=== PATIENT | female | born 1935 | race Caucasian/White ===

== ENCOUNTER 2018-03-03 14:45 | Inpatient (IN) | payer OTHER, MEDICARE ==
[~2018-03-03] VITALS: Ht 160 cm; Wt 80.9 kg
--- NOTE | 2018-03-03 15:03 | ED NEURO DEFICIT/STROKE ---
History of Present Illness General Chief Complaint: Neuro Symptoms/ Deficit Stated Complaint: BIBA FOR ?TIA Source: patient, DAUGHTER Exam Limitations: no limitations Vital Signs & Intake/Output Vital Signs & Intake/Output Vital Signs Date Time Temp Pulse Resp B/P B/P Pulse O2 O2 Flow FiO2 Mean Ox Delivery Rate 03/03 1459 98.5 03/03 1451 90 21 137/72 92 Room Air Allergies Coded Allergies: ciprofloxacin (Intermediate, RASH 03/03/18) Reconcile Medications Aspirin (Aspirin*) 81 MG TAB.CHEW 1 TAB PO DAILY HEART HEALTH (Reported) STOP taking on 03/17/18 Atorvastatin Calcium 40 MG TABLET 40 MG PO 1700 Stroke Clopidogrel Bisulfate (Plavix) 75 MG TABLET 75 MG PO DAILY Stroke Cyanocobalamin (Vitamin B-12) (Cyanocobalamin Injection) 1,000 MCG/ML VIAL 1 ML IM Q30D VITAMIN SUPPORT (Reported) Duloxetine HCl 60 MG CAPSULE.DR 1 CAP PO 1700 UNKNOWN (Reported) Ergocalciferol (Vitamin D2) (Vitamin D2) 50,000 UNIT CAPSULE 1 CAP PO Q30D VITAMIN SUPPORT (Reported) Folic Acid 0.4 MG TABLET 1 TAB PO DAILY VITAMIN SUPPORT (Reported) Furosemide 20 MG TABLET 1 TAB PO SuMoWeFrSa WATER RETENTION (Reported) Furosemide 40 MG TABLET 1 TAB PO TuTh WATER RETENTION (Reported) Melatonin 3 MG TABLET 2 TAB PO QPM SLEEP (Reported) Oxycodone HCl 10 MG TABLET 1 TAB PO 1800 PAIN (Reported) Potassium Chloride 20 MEQ TAB.ER.PRT 1 TAB PO DAILY SUPPLEMENT (Reported) Ranitidine (Ranitidine HCl) 150 MG TABLET 1 TAB PO QPM GI (Reported) Trazodone HCl 50 MG TABLET 1 TAB PO QPM SLEEP (Reported) Triage Note: [facility] ED FROM [facility] WITH REPORT OF SUDDEN ONSET OF RIGHT ARM AND LEG WEAKNESS AND GARBLED SPEECH AT 2 PM TODAY. ON EMS ARRIVAL, SYMPTOMS RESOLVED. PT ARRIVES TO ED A/O X 4 WITH CLEAR SPEECH. PTS DAUGHTER STATES PT IS OFTEN "OFF" WHEN SHE HAS A UTI Triage Nurses Notes Reviewed? yes Onset: Abrupt Duration: minute(s):, gone now, resolved prior to arrival Timing: single episode today Severity: severe New Weakness: RUE Impaired Ability: difficult to speak HPI: Patient presents for evaluation of an episode of right arm weakness and inability to speak. The patient states that she felt well for lunch and had returned to her room. At about 2 PM the physical therapist came to treat her, at which point she could not raise her right arm and was having difficulty speaking. She states that she was "tongue-tied". Symptoms fortunately resolved prior to arrival. The patient has no specific complaint at this time. Past History Travel History Traveled to [place] past 21 day No Medical History Any Pertinent Medical History? see below for history Cardiovascular: CHF Gastrointestinal: GI BLEED Renal: UTI History of MRSA: No History of VRE: No History of CDIFF: No Pneumonia Vaccine: 08/26/08 Influenza Vaccine: 08/20/13 Surgical History Surgical History: non-contributory Psychosocial History Who do you live with Other (see notes) Services at Home Nursing What is your primary language Amharic Tobacco Use: Never used Daily Tobacco Use Amount/Type: =< 4 Cigarettes daily ETOH Use: denies use Illicit Drug Use: denies illicit drug use Family History Family History, If Any: Relation not specified for: Family history unknown Hx Contributory? No Review of Systems Review of Systems Constitutional: Reports: no symptoms. EENTM: Reports: no symptoms. Respiratory: Reports: no symptoms. Cardiovascular: Reports: no symptoms. GI: Reports: no symptoms. Genitourinary: Reports: no symptoms. Musculoskeletal: Reports: no symptoms. Skin: Reports: no symptoms. Neurological/Psychological: Reports: see HPI. Hematologic/Endocrine: Reports: no symptoms. Immunologic/Allergic: Reports: no symptoms. All Other Systems: Reviewed and Negative Physical Exam Physical Exam General Appearance: SEE BELOW Cranial Nerves: SEE BELOW Comments: Gen.: Well-nourished, well-developed, no acute respiratory distress. Head: Normocephalic, atraumatic. Eyes: Normal inspection bilaterally Ears: Normal inspection bilaterally Nose: Normal inspection Throat/mouth : Moist mucosa Neck: Supple, full range of motion, no goiter Heart: Regular rate and rhythm, no murmurs rubs or gallops Lungs: Clear to auscultation bilaterally with normal air entry Chest: Nontender Back: Normal range of motion Abdomen: Soft, nontender, nondistended, normal bowel sounds Extremities: Normal range of motion grossly, equal radial pulses, no cyanosis clubbing or edema Neurologic: Cranial nerves 2-12 intact, speech is clear Skin: warm and dry Psychiatric: Calm, cooperative, no apparent delusions or hallucinations Core Measures CVA/TIA Diagnosis: Yes Swallow Evaluation Pass Swallow eval date 03/03/18 Swallow eval time 1900 Sepsis Present: No Sepsis Focused Exam Completed? No Progress Differential Diagnosis: electrolyte imbalance, intracranial Hem., intracranial mass/tumor, stroke, tia, UTI Plan of Care: Orders Procedure Date/time Status EKG 03/[address] NECK ANGIOGRAM 03/[address] HEAD ANGIOGRAM 03/03 1631 Active Straight Cath 03/03 1555 Active URINALYSIS 03/03 1502 Complete TROPONIN LEVEL 03/03 1502 Complete CBC WITHOUT DIFFERENTIAL 03/03 1502 Complete BASIC METABOLIC PANEL 03/03 1502 Complete EKG 03/03 1502 Active Current Medications Sig/Brittany Start time Last Medication Dose Stop Time Status Admin Alteplase, 7.2257 MG BOLUS ONE 03/03 164 CAN Recombinant 03/03 1646 (Activase 100 MG Inj) Laboratory Tests 03/03/18 1645: Urine Color YEL, Urine Clarity CLDY H, Urine pH 6.0, Ur Specific Lincoln 1.020, Urine Protein 30 H, Urine Ketones NEG, Urine Nitrite POS H, Urine Bilirubin NEG, Urine Urobilinogen 0.2, Ur Leukocyte Esterase LARGE H, Ur Microscopic SEDIMENT EXAMINED, Urine RBC 3-5, Urine WBC PACKD H, Ur Epithelial Cells RARE, Urine Bacteria MANY H, Urine Hemoglobin MOD H, Urine Glucose NEG 03/03/18 1540: Anion Gap 7, Estimated GFR > 60, BUN/Creatinine Ratio 18.8, Glucose 97, Calcium 8.4, Troponin I 0.01, CBC w Diff NO MAN DIFF REQ, RBC 4.78, MCV 88.7, MCH 28.6, MCHC 32.2 L, RDW 14.8 H, MPV 8.0, Gran % 73.3, Lymphocytes % 13.5 L, Monocytes % 11.3 H, Eosinophils % 0.9, Basophils % 1.0, Absolute Granulocytes 9.8 H, Absolute Lymphocytes 1.8, Absolute Monocytes 1.5 H, Absolute Eosinophils 0.1, Absolute Basophils 0.1 Diagnostic Imaging: Discussed w/RAD: CT Scan. Radiology Impression: PATIENT: RAMIREZ KENT PRESENT AGE: 83 PATIENT ACCOUNT NO: [id number] : 33 LOCATION: [facility] ORDERING PHYSICIAN: Elio Jin MD SERVICE DATE: 03/03/18 EXAM TYPE : CAT - CT HEAD WO IV CONTRAST EXAMINATION: CT HEAD WITHOUT CONTRAST CLINICAL INFORMATION: Transient right upper extremity weakness. Aphasia. COMPARISON: CT head 01/04/2013. TECHNIQUE: Contiguous axial imaging was performed from the skull base to vertex without intravenous administration of contrast. DLP: 588.98 mGy-cm FINDINGS: There are numerous ill-defined foci of hypoattenuation within the periventricular white matter that most likely represent a chronic manifestation of small vessel ischemia. An old lacunar infarct within the left thalamus is also noted. There is no acute intracranial hemorrhage or abnormal extra-axial collection. No intracranial mass effect or midline shift. The ventricular system is proportionate to the subarachnoid spaces. No hydrocephalus. Grossly no evidence of acute territorial infarct. The calvarium and skull base are intact. Mastoid air cells and middle ear cavities are well aerated. Visualized paranasal sinuses are well aerated. 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 Grossly no evidence of acute territorial infarct or hemorrhage. DICTATED BY: Gabino Dorado MD DATE/TIME DICTATED:03/03/181548 [employer]:CHELSEA DATE/ TIME TRANSCRIBED:03/03/181548 CONFIDENTIAL, DO NOT COPY WITHOUT APPROPRIATE AUTHORIZATION. <Electronically signed in Other Vendor System> SIGNED BY: Gabino Dorado MD 03/03/18 1554 Initial ED EKG: NSR, rate (93) Comments: 03/03/2018 4:31:15 PM I was asked to see patient for a recurrence of her symptoms. Upon my arrival to the room the patient was alert but had dysarthric speech and a subtle right facial droop and deviation of the tongue to the right. 03/03/2018 4:37:52 PM patient's case discussed with Dr. Valadez who feels the patient is a candidate for TPA not only based on the initial episode but on the repeat episode as well. Repeat EKG with symptoms remains unchanged. 03/03/2018 4:57:35 PM patient is now asymptomatic. I have discussed her case with Dr. Valadez again who feels that TPA should be withheld given the lack of symptoms. If the CTA shows a thrombosis then patient might be amenable to endovascular intervention at [facility]. Otherwise the patient should be admitted for standard TIA treatment. 03/03/2018 5:55:52 PM No occlusion or sig stenoses, aneurysm present, a lot of advanced chronic changes. Departure Departure Disposition: STILL A PATIENT Condition: Stable Clinical Impression Primary Impression: TIA (transient ischemic attack) Qualifiers: Transient cerebral ischemia type: unspecified Qualified Code: G45.9 - Transient cerebral ischemic attack, unspecified Referrals: Bassem GODINEZ,Rajat Genao (PCP/Family) Departure Forms: Customer Survey General Discharge Information Prescriptions: Current Visit Scripts Clopidogrel Bisulfate (Plavix) 75 MG PO DAILY #30 TAB Atorvastatin Calcium 40 MG PO 1700 #30 TAB Admission Note Spoke With: Caroline Baxter MD Documentation of Exam: Documentation of any treatments & extenuating circumstances including Concerns Regarding Discharge (functional status, medication knowledge or non-compliance, living conditions, etc.) that warrant an admission rather than observation: pt presents with repetitive TIA episodes suggesting a critical stenosis of a cerebral artery. she is at very high risk of a severely debilitating stroke. i do not feel she can be appropriately treated as an outpt given this high risk. i feel she requires hospitalization for continuous cardiac monitoring for possible episodic atrial fibrillation along with an expedited evaluation of reversable causes of TIA, including cardioembolism and carotid disease. medications should be reviewed and medical management optimized. Neurology and cardiology consultations should be considered. i feel this pt will require a mulitiple day hospitalization.
[2018-03-03] MEDS ORDERED: FUROSEMIDE40 M1 PO (15:25)
[2018-03-03] MEDS ORDERED: FUROSEMIDE20 M1 PO (15:25)
[2018-03-03] MEDS ORDERED: CYANOCOBAL1000 MCG/2 IM (15:26)
[2018-03-03] MEDS ORDERED: FOLIC ACID0.4 M1 PO (15:27)
[2018-03-03] MEDS ORDERED: VITAMIN D250000 UNIT PO (15:27)
[2018-03-03] MEDS ORDERED: ASPIRIN81 M4 PO (15:27)
[2018-03-03] MEDS ORDERED: DULOXETINE HCL60 MG PO (15:28)
[2018-03-03] MEDS ORDERED: POTASSIUM CHLO20 ME2 PO (15:28)
[2018-03-03] MEDS ORDERED: TRAZODONE HCL50 M1 PO (15:29)
[2018-03-03] MEDS ORDERED: OXYCODONE HCL10 M2 PO (15:29)
[2018-03-03] MEDS ORDERED: RANITIDINE HCL150 MG PO (15:30)
[2018-03-03] MEDS ORDERED: MELATONIN3 M4 PO (15:30)
[2018-03-03 15:47] LABS: ABSOLUTE BASOPHIL COUNT 0.1 /CUMM (0.0-0.2); ABSOLUTE EOSINOPHIL COUNT 0.1 /CUMM (0.0-0.7); ABSOLUTE GRANULOCYTE CT 9.8 /CUMM (1.4-6.5); ABSOLUTE LYMPH COUNT 1.8 /CUMM (1.2-3.4); ABSOLUTE MONOCYTE COUNT 1.5 /CUMM (0.10-0.60); EOSINOPHIL % 0.9 % (0-5); GRANULOCYTE % 73.3 % (42.2-75.2); HEMATOCRIT 42.4 % (37-47); MEAN CORPUSCULAR HGB 28.6 PG (27.0-31.0); MEAN CORPUSCULAR HGB CONC 32.2 G/DL (33.0-37.0); MEAN CORPUSCULAR VOLUME 88.7 FL (81.0-99.0); PLATELET COUNT 279 /CUMM (130-400); RBC DISTRIBUTION WIDTH 14.8 % (11.5-14.5); RED BLOOD CELL CT 4.78 /CUMM (4.20-5.40); WHITE BLOOD CELL COUNT 13.4 /CUMM (4.8-10.8)
--- NOTE | 2018-03-03 15:54 | CT SCAN REPORT ---
EXAMINATION: CT HEAD WITHOUT CONTRAST CLINICAL INFORMATION: Transient right upper extremity weakness. Aphasia. COMPARISON: CT head 01/04/2013. TECHNIQUE: Contiguous axial imaging was performed from the skull base to vertex without intravenous administration of contrast. DLP: 588.98 mGy-cm FINDINGS: There are numerous ill-defined foci of hypoattenuation within the periventricular white matter that most likely represent a chronic manifestation of small vessel ischemia. An old lacunar infarct within the left thalamus is also noted. There is no acute intracranial hemorrhage or abnormal extra-axial collection. No intracranial mass effect or midline shift. The ventricular system is proportionate to the subarachnoid spaces. No hydrocephalus. Grossly no evidence of acute territorial infarct. The calvarium and skull base are intact. Mastoid air cells and middle ear cavities are well aerated. Visualized paranasal sinuses are well aerated. 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 Grossly no evidence of acute territorial infarct or hemorrhage.
--- NOTE | 2018-03-03 18:02 | CT SCAN REPORT ---
EXAMINATION: CT ANGIOGRAM NECK WITH CONTRAST CT ANGIOGRAM BRAIN WITH CONTRAST CLINICAL INFORMATION: Right facial droop and tongue deviation with right upper extremity weakness. COMPARISON: Head CT performed earlier the same day. TECHNIQUE: Test bolus sequences followed by intravenous administration 100 mL of Ultravist-370. Helical imaging was performed in the axial plane from the thoracic inlet to the skull vertex. Delayed postcontrast imaging of the head was also performed. The data was processed at the diagnostic radiologic technologist workstation for generation of MIP sequences. Angled MIPs and volume rendered reformatted images were also generated at an offline 3D workstation. Stenoses are assessed in accordance with NASCET criteria unless otherwise indicated. 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 There is no intracranial hemorrhage, hydrocephalus, extra-axial surface collection, midline shift, or other herniation pattern. Mulligan to white matter differentiation is diffusely maintained without evidence of an evolved acute territorial infarct. The basilar cisterns are preserved. No significant soft tissue abnormality. No acute osseous abnormality. The paranasal sinuses and the mastoid air cells are well-aerated. CERVICAL SOFT TISSUES AND LUNG APICES: No significant soft tissue findings within the neck. The imaged upper lungs are clear. Moderate cervical spondylosis. NECK CTA: Left common carotid artery arises from the brachiocephalic artery, an anatomic variant. There is atherosclerotic calcification throughout the aortic arch as well as complex lipid rich atherosclerotic plaque. 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 The vertebral arteries are codominant. No significant ostial stenosis is visualized on either side. Both vertebral arteries are widely patent throughout their extracranial cervical course. Retropharyngeal course of the common carotid arteries and proximal to mid internal carotid arteries bilaterally. The common carotid arteries, carotid bifurcations, and cervical internal carotid arteries remain patent throughout their course. The right internal carotid artery undertakes a near 90 degree turn at the C2-C3 level with the tight bend resulting in a 60% luminal stenosis of the vessel in this location. BRAIN CTA: There is a severe stenosis involving the right P2 PUZZLE ASSEMBLER segment. There is otherwise normal opacification of major intracranial arteries. No additional focal flow-limiting stenosis, no discrete proximal large artery occlusion, and no saccular intradural aneurysm. Timing of the contrast bolus allows assessment of the major dural venous sinuses, which all opacify normally. IMPRESSION: - As on the earlier head CT, there is advanced chronic microangiopathy and there are lacunar infarcts within the deep mulligan nuclei bilaterally making it difficult to exclude any superimposed acute ischemic changes in these areas. If focal neurologic deficit persists, MRI can be obtained to more definitively exclude any acute infarcts in the setting. - There are no acute arterial occlusions intracranially. There is a severe stenosis involving the right P2 PUZZLE ASSEMBLER segment. - The right internal carotid artery undertakes a near 90 degree turn at the C2-C3 level with the tight bend resulting in a 60% luminal stenosis of the vessel in this location. Left internal carotid artery is widely patent. Retropharyngeal course of the common carotid arteries and proximal to mid internal carotid arteries. 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 Findings discussed with Dr. Jin at 5:57 PM on 03/03/2018
--- NOTE | 2018-03-03 20:42 | History & Physical ---
Jeffy Etienne MD 03/03/182032: General Information and HPI MD Statement: I have seen and personally examined RAMIREZ GARZA and documented this H&P. The patient is a 83 year old F who presented with a patient stated chief complaint of [slurred speech and right-sided weakness]. Source of Information: patient, family, old records, EMS Exam Limitations: no limitations History of Present Illness: The patient is an 83-year-old female with past medical history of hypercholesterolemia, hypertension, degenerative joint disease, osteoarthritis, history of diastolic dysfunction (echo in 2012 showing left ventricular ejection fraction of greater than 55% with stage I diastolic dysfunction), and urinary incontinence, history of insomnia, history of vertigo, history of GI bleed presenting this admission with sudden onset of right arm and leg weakness and difficulty speaking. Patient daughter was present at the time of interview. At approximately 2 PM on day of admission patient states that she noticed she was slurring her speech and started having right-sided weakness. Notes that she was not able to move her right arm and leg. Per patient and her daughter this episode resolved prior to coming to the ED. States that while in the ED at approximately 4 PM patient had another episode of right-sided weakness and slurring of speech which lasted approximately 15-20 minutes. Patient denies any numbness, tingling, confusion, palpitations, chest pain, visual disturbances, dizziness or lightheadedness. Patient's daughter states that there was no reported facial droop. No seizure- like symptoms. Patient reports that she has chronic urinary incontinence. Denies dysuria/hematuria, abdominal pain, increased frequency. Patient's daughter states that Patient denies fecal incontinence. Patient states that she has never had these type of symptoms in the past. Patient was brought to the ED from [facility] where, per the daughter, she has been staying for the past 5 years due to unsafe discharge from previous hospitalizations as patient was taking too much medication and required frequent hospitalizations due to falls in the past. [facility] was contacted for more information. They report that the patient had slurred speech and right-sided weakness this afternoon at which time patient was transferred to [facility]. Blood sugar in the field was 101. Patient received aspirin, folic acid and potassium at the nursing facility the morning of admission. Past medical history: Congestive heart failure, osteoarthritis, urinary incontinence, vertigo, insomnia Past surgical history: Cholecystectomy, partial hysterectomy, tonsillectomy Social history: Patient lives at [facility], former smoker, denies alcohol or other illicit drug use, patient at baseline uses a wheelchair to move around Medications: Per [facility] patient is on the following medications: Aspirin 81 mg daily Folic acid 0.4 mg daily Potassium 20 mg once daily Duloxetine 60 mg daily Oxycodone 10 mg daily Trazodone 50 mg at night Melatonin 6 mg at night Ranitidine 150 mg daily Allergies: Patient is allergic to ciprofloxacin reports that she gets hives. PCP: Dr. Luevano Employee Representative: Dr. Jones. Per daughter patient was seen in November 2016 at which time she reports that everything was fine. Allergies/Medications Allergies: Coded Allergies: ciprofloxacin (Intermediate, RASH 03/03/18) Home Med list Aspirin (Aspirin*) 81 MG TAB.CHEW 1 TAB PO DAILY HEART HEALTH (Reported) STOP taking on 03/18/18 Atorvastatin Calcium 40 MG TABLET 40 MG PO 1700 Stroke Clopidogrel Bisulfate (Plavix) 75 MG TABLET 75 MG PO DAILY Stroke Cyanocobalamin (Vitamin B-12) (Cyanocobalamin Injection) 1,000 MCG/ML VIAL 1 ML IM Q30D VITAMIN SUPPORT (Reported) Duloxetine HCl 60 MG CAPSULE.DR 1 CAP PO 1700 UNKNOWN (Reported) Ergocalciferol (Vitamin D2) (Vitamin D2) 50,000 UNIT CAPSULE 1 CAP PO Q30D VITAMIN SUPPORT (Reported) Folic Acid 0.4 MG TABLET 1 TAB PO DAILY VITAMIN SUPPORT (Reported) Furosemide 20 MG TABLET 1 TAB PO SuMoWeFrSa WATER RETENTION (Reported) Furosemide 40 MG TABLET 1 TAB PO TuTh WATER RETENTION (Reported) Melatonin 3 MG TABLET 2 TAB PO QPM SLEEP (Reported) Oxycodone HCl 10 MG TABLET 1 TAB PO 1800 PAIN (Reported) Potassium Chloride 20 MEQ TAB.ER.PRT 1 TAB PO DAILY SUPPLEMENT (Reported) Ranitidine (Ranitidine HCl) 150 MG TABLET 1 TAB PO QPM GI (Reported) Trazodone HCl 50 MG TABLET 1 TAB PO QPM SLEEP (Reported) Past History Travel History Traveled to [place] past 21 day No Medical History Cardiovascular: CHF Gastrointestinal: GI BLEED Renal: UTI History of MRSA: No History of VRE: No History of CDIFF: No Surgical History Surgical History: non-contributory Past Family/Social History Family History Relations & Conditions if any Relation not specified for: Family history unknown Psychosocial History Services at Home: Nursing ETOH Use: denies use Illicit Drug Use: denies illicit drug use Review of Systems Review of Systems Constitutional: Reports: see HPI, weakness. EENTM: Reports: no symptoms. Cardiovascular: Reports: no symptoms. Respiratory: Reports: no symptoms. GI: Reports: no symptoms. Genitourinary: Reports: see HPI. Musculoskeletal: Reports: joint pain. Skin: Reports: no symptoms. Neurological/Psychological: Reports: see HPI. Hematologic/Endocrine: Reports: bruising. Immunologic/Allergic: Reports: no symptoms. All Other Systems: Reviewed and Negative Exam & Diagnostic Data Last 24 Hrs of Vital Signs/I&O Vital Signs Date Time Temp Pulse Resp B/P B/P Pulse O2 O2 Flow FiO2 Mean Ox Delivery Rate 03/03 2005 98.9 85 20 135/78 97 Nasal 2.0L Cannula 03/03 180 98.2 85 20 140/85 97 Room Air 03/03 1459 98.5 03/03 1451 90 21 137/72 92 Room Air Intake & Output 03/03 1600 03/03 0800 03/03 0000 Intake Total Output Total Balance Patient 177 lb Weight Weight Reported by Patient Measurement Method Physical Exam General Appearance Alert, Oriented X3, Cooperative, No Acute Distress Skin No Rashes Skin Temp/Moisture Exam: Warm/Dry Sepsis Skin Exam (color): Normal for Ethnicity HEENT Atraumatic, PERRLA, EOMI, Mucous Membr. moist/pink Cardiovascular Regular Rate, Normal S1, Normal S2, No Murmurs Lungs Clear to Auscultation, Normal Air Movement Abdomen Normal Bowel Sounds, Soft, No Tenderness, abdominal hernia - reducible Neurological Normal Speech, Normal Tone, Sensation Intact, Cranial Nerves 3-12 NL, Reflexes 2+, strength 4/5 on RUE and LUE Extremities No Clubbing, No Cyanosis, No Edema, Normal Pulses, No Tenderness/ Swelling Last 24 Hrs of Labs/Tereso: Laboratory Tests 03/03/18 1645: Urine Color YEL, Urine Clarity CLDY H, Urine pH 6.0, Ur Specific New Site 1.020, Urine Protein 30 H, Urine Ketones NEG, Urine Nitrite POS H, Urine Bilirubin NEG, Urine Urobilinogen 0.2, Ur Leukocyte Esterase LARGE H, Ur Microscopic SEDIMENT EXAMINED, Urine RBC 3-5, Urine WBC PACKD H, Ur Epithelial Cells RARE, Urine Bacteria MANY H, Urine Hemoglobin MOD H, Urine Glucose NEG 03/03/18 1540: Anion Gap 7, Estimated GFR > 60, BUN/Creatinine Ratio 18.8, Glucose 97, Calcium 8.4, Troponin I 0.01, CBC w Diff NO MAN DIFF REQ, RBC 4.78, MCV 88.7, MCH 28.6, MCHC 32.2 L, RDW 14.8 H, MPV 8.0, Gran % 73.3, Lymphocytes % 13.5 L, Monocytes % 11.3 H, Eosinophils % 0.9, Basophils % 1.0, Absolute Granulocytes 9.8 H, Absolute Lymphocytes 1.8, Absolute Monocytes 1.5 H, Absolute Eosinophils 0.1, Absolute Basophils 0.1 Diagnostic Data EKG Results Normal sinus rhythm, Rate: 93, incomplete RBBB, t wave inversions (similar to previous EKG), no new changes, QTc: [address] Head w/o IV Contrast: There are numerous chronic small vessel ischemic changes within the periventricular white matter and an old chronic lacunar infarct within the left thalamus. Grossly no evidence of acute territorial infarct or hemorrhage. Head and Neck CTA: - As on the earlier head CT, there is advanced chronic microangiopathy and there are lacunar infarcts within the deep sanders nuclei bilaterally making it difficult to exclude any superimposed acute ischemic changes in these areas. If focal neurologic deficit persists, MRI can be obtained to more definitively exclude any acute infarcts in the setting. - There are no acute arterial occlusions intracranially. There is a severe stenosis involving the right P2 CHIEF SAFETY OFFICER segment. - The right internal carotid artery undertakes a near 90 degree turn at the C2-C3 level with the tight bend resulting in a 60% luminal stenosis of the vessel in this location. Left internal carotid artery is widely patent. Retropharyngeal course of the common carotid arteries and proximal to mid internal carotid arteries. 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 Assessment/Plan Assessment: The patient is an 83-year-old female with past medical history of hypercholesterolemia, hypertension, degenerative joint disease, osteoarthritis, history of diastolic dysfunction (echo in 2012 showing left ventricular ejection fraction of greater than 55% with stage I diastolic dysfunction), and urinary incontinence, history of insomnia, history of vertigo, history of GI bleed presenting this admission with sudden onset of right arm and leg weakness and difficulty speaking. 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 Patient had 2 separate events with similar symptoms of right- sided weakness and dysphasia which resolved within a short period of time. Patient received her daily aspirin in the morning prior to admission. Patient was given Plavix in the ED. Neurology was contacted and patient was not given TPA. Patient was also reported to be confused and below her baseline per patient's daughter with urinalysis positive for nitrites, leukocytes esterase, packed WBC and with a leukocytosis of 13.4. Patient received IV ceftriaxone in the ED. Patient will be admitted to the telemetry unit for management of followin. Suspected CVA/TIA * Monitor on telemetry * Neurochecks q4h * Serial EKG and troponins * Echocardiogram * MRI in a.m. * PT/OT evaluation * Formal swallow evaluation (patient passed bedside swallow) * Lipid profile in a.m. * Continue aspirin and Plavix (confirm with neuro in regards to continuation of Plavix) * High-dose statin * Neuro consult 2. Urinary tract infection * Continue ceftriaxone * Follow-up urine culture * Trend WBC and temperature 3. Chronic conditions: GERD, insomnia, arthritis Continue home medications: * Folic acid 0.4 mg daily * Potassium 20 mg once daily * Duloxetine 60 mg daily * Oxycodone 10 mg daily * Trazodone 50 mg at night * Melatonin 6 mg at night * Ranitidine 150 mg daily Code: Full code DVT prophylaxis: Lovenox, Alps Diet: Nothing by mouth for formal swallow eval As Ranked By This Provider Problem List: 1. CVA (cerebral vascular accident) 2. UTI (urinary tract infection) Core Measures/Misc (07/27) Acute Coronary Syndrome ACS Diagnosis: No Congestive Heart Failure Congestive Heart Failure Diagnosis No Cerebrovascular Accident CVA/TIA Diagnosis: Yes NIH Stroke Scale: Total 3 VTE (View Protocol) VTE Risk Factors Age>40 No Mechanical VTE Prophylaxis d/t N/A MechProphylax Ordered No VTE Pharm Prophylaxis d/t NA PharmProphylax ordered Sepsis (View protocol) Sepsis Present: No Albalwai,Afaf 03/03/18 2153: Resident Review Statement Resident Statement: examined this patient, discussed with product marketing intern, agreed with product marketing intern, discussed with family, reviewed EMR data (avail), discussed with nursing , discussed with case mgmt, reviewed images Other Findings: Mrs. Garza is an 83 year old woman with past medical history of urinary incontinence, HLD, CHF, stage I diastolic failure, arthritis, presents with slurred speech from [facility], episode happened twice today one at the senior living and one at our ED, at ED it last for 15-20 minutes associated with weakness on the right side. CT head, CTA head, and CTA neck was obtained at emergency department which was pertinent for: advanced chronic microangiopathy and there are lacunar infarcts within the deep sanders nuclei bilaterally making it difficult to exclude any superimposed acute ischemic changes in these areas. There is a severe stenosis involving the right P2 CHIEF SAFETY OFFICER segment. The right internal carotid artery undertakes a near 90 degree turn at the C2-C3 level with the tight bend resulting in a 60% luminal stenosis of the vessel in this location. Left internal carotid artery is widely patent. ED physician discussed the findings with neurologist and they decided to admit the patient, neurologist will see the patient tomorrow. Will admitt the patient to telemetry floor, ED department spoke with Dr. Valadez ( neurologist), will place on official consult, she received 1 dose of Plavix at ED and one dose of aspirin at the senior living, will continue aspirin from tomorrow, no need for carotid ultrasound as she has neck CTA, MRI head at a.m. , will trend troponin and EKG to rule out ACS, will check lipid panel, courtesy call for Dr. Jones to let him know that the patient admitted for TIA, neuro checks , telemetry monitoring, PT, OT, official swallow evaluation at a.m., will continue her home medication Lasix as ordered, K Arturo, vitamin D, folic acid, and will hold oxycodone, melatonin, ranitidine, trazodone, and duloxitine, assess patient at a.m. if she remains stable resume her medication. Her urine was dirty and she reports funny smelling urine, she was given 1 dose of ceftriaxone at emergency department, would continue that and will send urine culture. DVT prophylaxis with SC Lovenox, she is a full code (she has a living will states that she needs to be resuscitated but not to be on machines for more than 4 weeks) Chio Sierra 03/04/18 0054: Attending MD Review Statement Attending Statement Attending MD Statement: examined this patient, discuss w/resident/PA/CATH LAB, agreed w/resident/PA/CATH LAB, discussed with family, reviewed EMR data (avail), reviewed images, amended to note Attending Assessment/Plan: CC: Right upper extremity weakness and speech abnormality PMH: CHF Patient was sent to ER from [facility] through EMS for sudden onset right upper arm and leg weakness and garbled speech that happened around 2 PM. According to the patient she had lunch and she went to her room where physical therapy came and patient and the therapist noted that she cannot move her right upper extremity, it appeared weak and it was definite new change according to patient and other senior living staff. At the same time patient states that her speech was different, words were not coming out appropriately and right leg was weak as well. EMS was called and patient was sent to ER, by that time all her symptoms resolved and physical examination was normal. Later in the course of ER at around 4 PM patient noticed that her right upper extremity was weak again but resolved eventually. Daughter states that whenever patient gets UTI she goes an acute confusional state or mental status changes. Patient denies any urinary burning, frequency, irritation, she also denies any chest pain, chest tightness, dizziness, double vision, blurry vision, passing out, tingling numbness or seizure like activity. Vitals: Afebrile, pulse 90, RR 21, blood pressure 137/72, saturating 92% on 2 L nasal cannula. On exam: A O 3, cooperative, no acute distress, neck supple, JVD normal, no lymphadenopathy, mucosa moist, no dependent edema, no obvious skin rashes or inflammation CVS: S1-S2, RRR. RS: Clear to auscultate bilaterally. Abdomen: Soft , NT, ND, bowel sounds present. Pupils unequal, right smaller than left, both reactive to light, no nystagmus, and vision intact, decreased prominence of nasolabial fold on right side, right upper extremity drift and power 4/5 as compared to left upper extremity which is 5/5, right lower extremity strength 4/ 5, left lower extremity strength 5/5. Cerebellar reflexes intact. CT head: There are numerous chronic small vessel ischemic changes within the periventricular white matter and an old chronic lacunar infarct within the left thalamus. Grossly no evidence of acute territorial infarct or hemorrhage. CTA head and neck: - As on the earlier head CT, there is advanced chronic microangiopathy and there are lacunar infarcts within the deep sanders nuclei bilaterally making it difficult to exclude any superimposed acute ischemic changes in these areas. If focal neurologic deficit persists, MRI can be obtained to more definitively exclude any acute infarcts in the setting. - There are no acute arterial occlusions intracranially. There is a severe stenosis involving the right P2 CHIEF SAFETY OFFICER segment. - The right internal carotid artery undertakes a near 90 degree turn at the C2-C3 level with the tight bend resulting in a 60% luminal stenosis of the vessel in this location. Left internal carotid artery is widely patent. Retropharyngeal course of the common carotid arteries and proximal to mid internal carotid arteries. 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 Assessment and plan 83-year-old female with past medical history significant for congestive heart failure presented in ER for right upper extremity, lower extremity weakness at 2 PM associated with garbled speech. The symptoms resolved by the time she came to ER but appeared again at 4 PM while in ER. Given the recurrence of symptoms, she was considered a TPA candidate and by the time it could be infused her symptoms resolved. So patient did not receive TPA. Instead she received 75 mg Plavix, she already had 81 mg aspirin in the morning. On my examination she has NIHSS of 3, examination are described above. She may have had a small lacunar stroke that is not apparent on the CT scan. She already underwent a CTA head and neck which showed stenotic lesions on the right side circulation, which is not clinically correlated with patient's symptoms. We will get neurology opinion of further management (MRI and aspirin+ Plavix for 21 days) . Patient passed bedside swallow evaluation. Given her mental status changes we will treat her UTI as simple cystitis. + suspected CVA + Cystitis + Hx HF - Admit to telemetry - Continuous telemetry monitoring - Serial troponin and EKG - MRI brain with recommended by neurology - 2-D echocardiogram in a.m. - DVT prophylaxis - Obtain lipid profile - Continue aspirin and atorvastatin 40 mg - Neurology consult - Serial neuro checks - Adequate pain control - Hold Lasix for now - Swallow evaluation in a.m., OT PT evaluation - IV ceftriaxone for UTI
[2018-03-03 22:31] VITALS: BP 120/82
--- NOTE | 2018-03-04 00:55 | Admission Certification ---
Admission Certification Certification Statement - As attending physician, I certify that at the time of - admission, based on clinical presentation, severity of - symptoms, need for further diagnostic testing and - therapeutic interventions, and risk of adverse outcomes - without in-hospital treatment, in my clinical assessment, - this patient requires an acute hospital stay for a minimum - of two nights or longer. I have also considered psychsocial - factors such as support system, advanced age, financial - issues, cognitive issues, and failed out-patient treatments, - past re-admission history, safety of patient, and lack of - compliance as applicable. Specific rationale supporting this admission is: CVA
[2018-03-04 06:47] VITALS: BP 122/80
--- NOTE | 2018-03-04 07:50 | PN- Housestaff ---
Subjective Follow-up For: CVA Tele-Events Since Last Visit: Sinus rhyhtm HR 80s-90s Subjective: Patient was seen and examined at bedside. She was resting comfortably. She had no acute events overnight. She states that she feels significantly improved from yesterday, she is now able to speak normally. However she reports continued mild right upper extremity weakness, improved from yesterday. She has no other complaints and denies any headaches, dizziness, lightheadedness, chest pain, shortness of breath, palpitations. Review of Systems Constitutional: Reports: weakness. Denies: chills, fever, malaise. EENTM: Reports: no symptoms. Cardiovascular: Reports: no symptoms. Respiratory: Reports: no symptoms. Gastrointestinal: Reports: no symptoms. Genitourinary: Reports: no symptoms. Musculoskeletal: Reports: no symptoms. Skin: Reports: no symptoms. Neurological/Psychological: Reports: see HPI. Objective Last 24 Hrs of Vital Signs/I&O Vital Signs Date Time Temp Pulse Resp B/P B/P Pulse O2 O2 Flow FiO2 Mean Ox Delivery Rate 03/04 0647 98.6 86 24 122/80 96 Nasal 2.0L Cannula 03/04 0000 96 Nasal 2.0L Cannula 03/03 2231 98.2 87 24 120/82 96 03/03 2218 Nasal 2.0L Cannula 03/03 2005 98.9 85 20 135/78 97 Nasal 2.0L Cannula 03/03 180 98.2 85 20 140/85 97 Room Air 03/03 1459 98.5 03/03 1451 90 21 137/72 92 Room Air Intake & Output 03/04 0800 03/04 0000 03/03 1600 Intake Total 60 Output Total Balance 60 Intake, IV 10 Intake, Oral 50 Patient 176 lb 177 lb Weight Weight Bed scale Reported by Patient Measurement Method Physical Exam General Appearance: Alert, Cooperative, No Acute Distress, oriented to person and place but not time Skin Temp/Moisture Exam: Warm/Dry Sepsis Skin Exam (color): Normal for Ethnicity Cardiovascular: Regular Rate, Normal S1, Normal S2 Lungs: Clear to Auscultation, Normal Air Movement Abdomen: Normal Bowel Sounds, Soft, No Tenderness Neurological: Normal Speech, Normal Tone, 4+/5 strength of the RUE Extremities: No Clubbing, No Cyanosis, No Edema Current Medications: Current Medications Sig/Brittany Start time Last Medication Dose Route Stop Time Status Admin Acetaminophen 650 MG Q6P PRN 03/03 2100 AC PO Alteplase, 7.2257 MG BOLUS ONE 03/03 164 CAN Recombinant IV 03/03 164 Aspirin 81 MG DAILY 03/04 09 AC PO Atorvastatin Calcium 40 MG 1700 03/04 1700 AC PO Ceftriaxone Sodium 1,000 MG DAILY 03/04 09 AC IV Ceftriaxone Sodium 0 .STK-MED ONE 03/03 1907 DC .ROUTE Ceftriaxone Sodium 1,000 MG ONCE ONE 03/03 1900 DC 03/03 IV 03/03 190 190 Clopidogrel Bisulfate 75 MG ONCE ONE 03/03 1830 DC 03/03 PO 03/03 1831 190 Enoxaparin Sodium 40 MG DAILY 03/04 900 AC SC Folic Acid 1 MG DAILY 03/04 900 AC PO Furosemide 20 MG SuMoWeFrSa 03/04 900 CAN PO Furosemide 0 .STK-MED ONE 03/03 2212 DC PO Furosemide 40 MG TuTh 03/03 2145 DC 03/03 PO 2208 Melatonin 3 MG AT BEDTIME 03/04 0230 AC 03/04 PO 0230 Last 24 Hrs of Lab/Tereso Results Last 24 Hrs of Labs/Mics: Laboratory Tests 03/04/18 0645: Anion Gap 12, Estimated GFR > 60, BUN/Creatinine Ratio 20.0, Troponin I 0.02, Triglycerides 97, Cholesterol 181, LDL Cholesterol, Calc 117, HDL Cholesterol 45 , Cholesterol/HDL Ratio 4, CBC w Diff NO MAN DIFF REQ, RBC 4.43, MCV 88.7, MCH 29.3, MCHC 33.0, RDW 14.0, MPV 8.7, Gran % 74.3, Lymphocytes % 14.4 L, Monocytes % 9.7 H, Eosinophils % 1.3, Basophils % 0.3, Absolute Granulocytes 8.9 H, Absolute Lymphocytes 1.7, Absolute Monocytes 1.2 H, Absolute Eosinophils 0.2, Absolute Basophils 0 03/03/182154: Troponin I 0.02 03/03/181644: Urine Color YEL, Urine Clarity CLDY H, Urine pH 6.0, Ur Specific [place] 1.020, Urine Protein 30 H, Urine Ketones NEG, Urine Nitrite POS H, Urine Bilirubin NEG, Urine Urobilinogen 0.2, Ur Leukocyte Esterase LARGE H, Ur Microscopic SEDIMENT EXAMINED, Urine RBC 3-5, Urine WBC PACKD H, Ur Epithelial Cells RARE, Urine Bacteria MANY H, Urine Hemoglobin MOD H, Urine Glucose NEG 03/03/18 1540: Anion Gap 7, Estimated GFR > 60, BUN/Creatinine Ratio 18.8, Glucose 97, Calcium 8.4, Troponin I 0.01, CBC w Diff NO MAN DIFF REQ, RBC 4.78, MCV 88.7, MCH 28.6, MCHC 32.2 L, RDW 14.8 H, MPV 8.0, Gran % 73.3, Lymphocytes % 13.5 L, Monocytes % 11.3 H, Eosinophils % 0.9, Basophils % 1.0, Absolute Granulocytes 9.8 H, Absolute Lymphocytes 1.8, Absolute Monocytes 1.5 H, Absolute Eosinophils 0.1, Absolute Basophils 0.1 Microbiology 03/03 2355 URINE ROUT: Urine Culture - RECD Orders Radiology Findings: Head MRI FINDINGS: There is a small acute infarct extending from the left periventricular white matter into the posterior aspect of the left putamen. Accounting for areas of facilitated diffusion on the diffusion series, no additional acute infarcts are identified. There are T2 signal changes throughout the supratentorial white matter and brainstem suggesting moderate to severe chronic microangiopathy. Chronic lacunar infarcts within the periventricular white matter bilaterally, the deep sanders nuclei bilaterally, and cerebellar hemispheres. There is no hydrocephalus, extra-axial surface collection, or herniation. The major flow voids at the skull base are preserved. On the gradient series, there are chronic hypertensive petechial microhemorrhages within the cerebellar hemispheres, the brainstem, the deep sanders nuclei bilaterally, and to a lesser extent within the cerebral hemispheres. The midline structures are normal. The cerebellar tonsils are normally positioned. The craniocervical junction is normal. Osseous marrow signal intensity is homogenous. The visualized soft tissues are unremarkable. There are left greater than right mastoid effusions. IMPRESSION: - There is a small acute infarct extending from the left periventricular white matter into the posterior aspect of the left putamen. There is no evidence of hemorrhagic transformation and there is no significant mass effect. 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 Assessment/Plan Assessment: Patient is an 83-year-old female with a PMH significant for HTN, HLD, DJD, OA, diastolic dysfunction stage I with normal EF, urinary incontinence who presented from her [place] [facility] she lives with right upper and lower extremity weakness and dysarthria. 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 These findings did not explain his presenting symptoms were felt to be incidental. MRI head shows a small acute infarcts in the left periventricular white matter. -As patient was already on aspirin, Plavix was started for dual antiplatelet therapy -Continue statin -Patient was seen by speech therapy for bedside swallow evaluation and was cleared for a regular diet with thin liquids -Lipid panel is within normal limits -Follow-up echo #Hypokalemia Repleted orally -Follow-up BEP tomorrow #Mild leukocytosis Possibly reactive, UA results are consistent with previous UAs and patient is asymptomatic for any urinary complaints. -Discontinue ceftriaxone Diet: Heart healthy DVT prophylaxis: Lovenox CODE STATUS: Full code Problem List: 1. CVA (cerebral vascular accident) 2. Hypokalemia Pain Ratin Pain Location: none Pain Goal: Remain pain free Pain Plan: pain pathway Tomorrow's Labs & Rationales: bep, cbc
[2018-03-04 08:54] LABS: ABSOLUTE BASOPHIL COUNT 0 /CUMM (0.0-0.2); ABSOLUTE EOSINOPHIL COUNT 0.2 /CUMM (0.0-0.7); ABSOLUTE GRANULOCYTE CT 8.9 /CUMM (1.4-6.5); ABSOLUTE LYMPH COUNT 1.7 /CUMM (1.2-3.4); ABSOLUTE MONOCYTE COUNT 1.2 /CUMM (0.10-0.60); BASOPHIL % 0.3 % (0.0-2.0); EOSINOPHIL % 1.3 % (0-5); GRANULOCYTE % 74.3 % (42.2-75.2); HEMATOCRIT 39.3 % (37-47); MEAN CORPUSCULAR HGB 29.3 PG (27.0-31.0); MEAN CORPUSCULAR VOLUME 88.7 FL (81.0-99.0); MEAN PLATELET VOLUME 8.7 FL (7.4-10.4); PLATELET COUNT 271 /CUMM (130-400); RED BLOOD CELL CT 4.43 /CUMM (4.20-5.40)
--- NOTE | 2018-03-04 10:23 | MRI REPORT ---
MR BRAIN WITHOUT CONTRAST CLINICAL INFORMATION: Slurred speech COMPARISON: CTA head and neck and head CT 03/03/2018. TECHNIQUE: MRI of the brain without contrast was obtained using routine sequences. FINDINGS: There is a small acute infarct extending from the left periventricular white matter into the posterior aspect of the left putamen. Accounting for areas of facilitated diffusion on the diffusion series, no additional acute infarcts are identified. There are T2 signal changes throughout the supratentorial white matter and brainstem suggesting moderate to severe chronic microangiopathy. Chronic lacunar infarcts within the periventricular white matter bilaterally, the deep sanders nuclei bilaterally, and cerebellar hemispheres. There is no hydrocephalus, extra-axial surface collection, or herniation. The major flow voids at the skull base are preserved. On the gradient series, there are chronic hypertensive petechial microhemorrhages within the cerebellar hemispheres, the brainstem, the deep sanders nuclei bilaterally, and to a lesser extent within the cerebral hemispheres. The midline structures are normal. The cerebellar tonsils are normally positioned. The craniocervical junction is normal. Osseous marrow signal intensity is homogenous. The visualized soft tissues are unremarkable. There are left greater than right mastoid effusions. IMPRESSION: - There is a small acute infarct extending from the left periventricular white matter into the posterior aspect of the left putamen. There is no evidence of hemorrhagic transformation and there is no significant mass effect. 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 The covering provider has been paged with these findings at 10:10 AM on 03/04/2018.
--- NOTE | 2018-03-04 11:05 | PN- Att Addend ---
Attending Addendum Attending Brief Note Patient seen and examined. Plan of care discussed with the medical team and the patient. Available lab work and radiology test reports were reviewed. Patient currently awake alert oriented. Right hand weakness has improved. She denies any recent fever chills nausea vomiting chest pain difficulty breathing. Exam: General: Patient awake alert oriented without any distress CVS: S1 plus S2 without any murmur or gallops Chest: Few scattered crepitation without any wheeze. There is no respiratory distress. Abdomen: Soft non-tender, bowel sound present, no guarding or rebound MAIL EXAMINER: Awake alert oriented without any focal neuro deficit and follows commands appropriately Extremities: No edema; no clubbing or cyanosis noted Assessment * Acute stroke * History of hypertension * History of DJD * History of diastolic dysfunction based on echo in 2012 history of GI bleed * Anatomical narrowing right internal carotid artery Plan * Continue Lipitor and Plavix * Discontinue ceftriaxone and follow off antibiotics; patient urinalysis has not changed from before * PT evaluation; assess for need to go to short-term rehabilitation * Echocardiogram * Continue DVT to prophylaxis * Neuro consult * If echo neuro consult can be completed patient can be discharged either today or tomorrow * Replace potassium by mouth * No need to check a CBC tomorrow Current Medications Sig/Brittany Start time Last Medication Dose Route Stop Time Status Admin Acetaminophen 650 MG Q6P PRN 03/03 2100 AC PO Alteplase, 7.2257 MG BOLUS ONE 03/03 1645 CAN Recombinant IV 03/03 1646 Aspirin 81 MG DAILY 03/04 09 AC PO Atorvastatin Calcium 40 MG 1700 03/04 1700 AC PO Ceftriaxone Sodium 1,000 MG DAILY 03/04 09 AC 03/04 IV 0859 Ceftriaxone Sodium 0 .STK-MED ONE 03/03 1907 DC .ROUTE Ceftriaxone Sodium 1,000 MG ONCE ONE 03/03 1900 DC 03/03 IV 03/03 1901 1909 Clopidogrel Bisulfate 75 MG DAILY 03/04 1036 AC PO Clopidogrel Bisulfate 75 MG ONCE ONE 03/03 1830 DC 03/03 PO 03/03 1831 1900 Enoxaparin Sodium 40 MG DAILY 03/04 0900 AC 03/04 SC 0900 Folic Acid 1 MG DAILY 03/04 0900 AC PO Furosemide 20 MG SuMoWeFrSa 03/04 0900 CAN PO Furosemide 0 .STK-MED ONE 03/03 2212 DC [facility]03 2145 DC 03/03 PO 2208 Melatonin 3 MG AT BEDTIME 03/04 0230 AC 03/04 PO 0230 Laboratory Tests 03/04/18 0645: Anion Gap 12, Estimated GFR > 60, BUN/Creatinine Ratio 20.0, Troponin I 0.02, Triglycerides 97, Cholesterol 181, LDL Cholesterol, Calc 117, HDL Cholesterol 45 , Cholesterol/HDL Ratio 4, CBC w Diff NO MAN DIFF REQ, RBC 4.43, MCV 88.7, MCH 29.3, MCHC 33.0, RDW 14.0, MPV 8.7, Gran % 74.3, Lymphocytes % 14.4 L, Monocytes % 9.7 H, Eosinophils % 1.3, Basophils % 0.3, Absolute Granulocytes 8.9 H, Absolute Lymphocytes 1.7, Absolute Monocytes 1.2 H, Absolute Eosinophils 0.2, Absolute Basophils 0 03/03/18 2155: Troponin I 0.02 03/03/18 1645: Urine Color YEL, Urine Clarity CLDY H, Urine pH 6.0, Ur Specific [place] 1.020, Urine Protein 30 H, Urine Ketones NEG, Urine Nitrite POS H, Urine Bilirubin NEG, Urine Urobilinogen 0.2, Ur Leukocyte Esterase LARGE H, Ur Microscopic SEDIMENT EXAMINED, Urine RBC 3-5, Urine WBC PACKD H, Ur Epithelial Cells RARE, Urine Bacteria MANY H, Urine Hemoglobin MOD H, Urine Glucose NEG 03/03/18 1540: Anion Gap 7, Estimated GFR > 60, BUN/Creatinine Ratio 18.8, Glucose 97, Calcium 8.4, Troponin I 0.01, CBC w Diff NO MAN DIFF REQ, RBC 4.78, MCV 88.7, MCH 28.6, MCHC 32.2 L, RDW 14.8 H, MPV 8.0, Gran % 73.3, Lymphocytes % 13.5 L, Monocytes % 11.3 H, Eosinophils % 0.9, Basophils % 1.0, Absolute Granulocytes 9.8 H, Absolute Lymphocytes 1.8, Absolute Monocytes 1.5 H, Absolute Eosinophils 0.1, Absolute Basophils 0.1 Microbiology 03/03 0515 URINE ROUT: Urine Culture - RECD Vital Signs Date Time Temp Pulse Resp B/P B/P Pulse O2 O2 Flow FiO2 Mean Ox Delivery Rate 03/04 0647 98.6 86 24 122/80 96 Nasal 2.0L Cannula 03/04 0000 96 Nasal 2.0L Cannula 03/03 2231 98.2 87 24 120/82 96 03/03 2218 Nasal 2.0L Cannula 03/03 2005 98.9 85 20 135/78 97 Nasal 2.0L Cannula 03/03 1805 98.2 85 20 140/85 97 Room Air 03/03 1459 98.5 03/03 1451 90 21 137/72 92 Room Air Intake & Output 03/04 1600 03/04 0800 03/04 0000 Intake Total 60 Output Total Balance 60 Intake, IV 10 Intake, Oral 50 Patient 176 lb Weight Weight Bed scale Measurement Method MRI - There is a small acute infarct extending from the left periventricular white matter into the posterior aspect of the left putamen. There is no evidence of hemorrhagic transformation and there is no significant mass effect. 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
--- NOTE | 2018-03-04 12:31 | Cons- Neurology ---
General Information and HPI Consulting Request Date of Consult: 03/04/18 Requested By: Candelaria Lamar MD History of Present Illness: 83-year-old hypertensive female brought to ER last evening after an episode of slurred speech and right upper extremity weakness which resolved prior to arrival at the emergency department. Initial CT scan of the head was unrevealing. While in the ER, she again had another, similar episode of dysarthria, facial asymmetry and right upper extremity weakness which also resolved spontaneously. TPA had been considered but was ultimately held as symptoms normalized. She had no prior history of stroke or TIA. She has been residing at a halfway due to impaired locomotion and prior falls. Allergies/Medications Allergies: Coded Allergies: ciprofloxacin (Intermediate, RASH 03/03/18) Home Med List: Aspirin (Aspirin*) 81 MG TAB.CHEW 1 TAB PO DAILY HEART HEALTH (Reported) Cyanocobalamin (Vitamin B-12) (Cyanocobalamin Injection) 1,000 MCG/ML VIAL 1 ML IM Q30D VITAMIN SUPPORT (Reported) Duloxetine HCl 60 MG CAPSULE.DR 1 CAP PO 1700 UNKNOWN (Reported) Ergocalciferol (Vitamin D2) (Vitamin D2) 50,000 UNIT CAPSULE 1 CAP PO Q30D VITAMIN SUPPORT (Reported) Folic Acid 0.4 MG TABLET 1 TAB PO DAILY VITAMIN SUPPORT (Reported) Furosemide 20 MG TABLET 1 TAB PO SuMoWeFrSa WATER RETENTION (Reported) Furosemide 40 MG TABLET 1 TAB PO TuTh WATER RETENTION (Reported) Melatonin 3 MG TABLET 2 TAB PO QPM SLEEP (Reported) Oxycodone HCl 10 MG TABLET 1 TAB PO 1800 PAIN (Reported) Potassium Chloride 20 MEQ TAB.ER.PRT 1 TAB PO DAILY SUPPLEMENT (Reported) Ranitidine (Ranitidine HCl) 150 MG TABLET 1 TAB PO QPM GI (Reported) Trazodone HCl 50 MG TABLET 1 TAB PO QPM SLEEP (Reported) Review of Systems Review of Systems: Notable for knee pain, obesity and imbalance. Also positive for the acute slurring of speech and right-sided weakness which was transient. 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 Acute Rehab Services at Home: Nursing Smoking Status: Former Smoker ETOH Use: denies use Illicit Drug Use: denies illicit drug use Exam & Diagnostic Data Vital Signs and I&O Vital Signs Date Time Temp Pulse Resp B/P B/P Pulse O2 O2 Flow FiO2 Mean Ox Delivery Rate 03/04 0647 98.6 86 24 122/80 96 Nasal 2.0L Cannula 03/04 0000 96 Nasal 2.0L Cannula 03/03 2231 98.2 87 24 120/82 96 03/03 2218 Nasal 2.0L Cannula 03/03 2005 98.9 85 20 135/78 97 Nasal 2.0L Cannula 03/03 1805 98.2 85 20 140/85 97 Room Air 03/03 1459 98.5 03/03 1451 90 21 137/72 92 Room Air Intake & Output 03/04 1600 03/04 0800 03/04 0000 Intake Total 60 Output Total Balance 60 Intake, IV 10 Intake, Oral 50 Patient 176 lb Weight Weight Bed scale Measurement Method Elderly, obese female in no acute distress. The head was normocephalic and atraumatic. She was awake, alert and cooperative. Pupils were equal. Extraocular movements were full. There was no nystagmus. There was no field cut. Facial strength and sensation was intact. Tongue was midline; there was no dysarthria. The motor examination showed no drift of the upper extremities. There was no gross lateralizing weakness. Deep tendon reflexes were hypoactive. Plantar responses were flexor. There was no ataxia on finger to nose testing. Joint position sense was intact. The gait was not evaluated. MRI of the brain shows the presence of a small, acute left periventricular ischemic infarct extending into the putamen Assessment/Plan Assessment: Waxing and waning neurological symptoms resulting in a small left subcortical infarct. At present, her examination is nonfocal with no objective findings referable to the visualized lesion. Recommendations: We would recommend; #1 observation for 24-48 hours #2 dual antiplatelet therapy for 2 weeks after which we would discontinue aspirin and continue on Plavix 75 mg daily #3 a high intensity statin #4 brief physical and occupational therapy evaluations. The above was discussed with the patient and her daughter at the bedside as well as Dr. Martinez by phone. Feel free to call with any additional questions. Consult Acknowledgment - Thank you for your consult request.
--- NOTE | 2018-03-04 13:56 | Discharge Summary ---
Visit Information Visit Dates Admission Date: 03/03/18 Discharge Date: 03/06/18 Hospital Course Course Attending Physician: Candelaria Lamar MD Primary Care Physician: Rajat Luevano MD Consulting Request: Consulting Specialty: Neurology Hospital Course: 83-year-old woman with past medical history of hyperlipidemia, hypertension, DJD , osteoarthritis, HFpEF (LVEF >55% with stage I diastolic dysfunction), urinary incontinence, insomnia, vertigo, and GI bleed seen for evaluation of sudden onset right arm and leg weakness with slurred speech. Collateral information was obtained from the patient's daughter during the interview. She reported around 2 PM on day of admission she noticed that her mother was slurring her speech with obvious right-sided weakness. She was not able to move her right arm and leg apparently for which EMS was contacted and patient was brought to the [place] ED. Upon arrival to the ED patient's right arm/leg weakness had apparently resolved. Around 4 PM while in the ED patient had another episode of weakness lasting approximately 15-20 minutes. ED course -Vital signs: Temp 98.2-98.9, HR 85-90, RR 20-21, SBP 135-140, O2 92-97% on 2 L -CBC: WBC 13.4, hemoglobin 13.7, hematocrit 42.4, platelet 279 -BMP: Sodium 138, potassium 3.9, chloride 99, CO2 33, urea 15, creatinine 0.8, anion gap 7, glucose 97 -Miscellaneous: Troponin I 0.01 -Urinalysis: Packed WBC with positive nitrates and large leukocyte esterase, many bacteria, moderate hemoglobin -EKG: NSR with incomplete RBBB and old T-wave inversions -CT head without IV contrast: * There are numerous chronic small vessel ischemic changes within the periventricular white matter and an old chronic lacunar infarct within the left thalamus. Grossly no evidence of acute territorial infarct or hemorrhage. -CTA head and neck: * As on the earlier head CT, there is advanced chronic microangiopathy and there are lacunar infarcts within the deep sanders nuclei bilaterally making it difficult to exclude any superimposed acute ischemic changes in these areas. If focal neurologic deficit persists, MRI can be obtained to more definitively exclude any acute infarcts in the setting. * There are no acute arterial occlusions intracranially. There is a severe stenosis involving the right P2 [employer] segment. * The right internal carotid artery undertakes a near 90 degree turn at the C2-C3 level with the tight bend resulting in a 60% luminal stenosis of the vessel in this location. Left internal carotid artery is widely patent. Retropharyngeal course of the common carotid arteries and proximal to mid internal carotid arteries. * A 1 cm aneurysm projects superiorly from the aortic arch just distal to the left subclavian artery origin. Problem list on admission -Intermittent Slurred speech with right-sided weakness, probable TIA/CVA -Urinary tract infection -Newly identified 1 cm aortic arch aneurysm -Stage I diastolic dysfunction -Hyperlipidemia -Hypertension -Degenerative joint disease -Osteoarthritis -Urinary incontinence -Insomnia -Vertigo -History of GI bleed Hospital course Patient was admitted to the telemetry floor. Patient passed bedside swallow evaluation. Neurology consult was placed. Serial troponin/EKG were obtained for unremarkable. She remained in normal sinus rhythm on telemetry. MRI demonstrated a small acute infarct extending from the left periventricular white matter into the posterior aspect of the left putamen with several other chronic findings. Patient was treated with a high intensity statin and dual antiplatelet therapy. Patient will need to stay on aspirin for 2 weeks which can then be discontinued. She received a dose of Rocephin for a positive urinalysis in the ED but was followed off antibiotics as patient remained afebrile without leukocytosis or urinary symptoms. Physical therapy evaluated the patient and recommended discharged to a shelter facility. Echocardiogram Showed normal LVEF with stage 1 diastolic dysfucntion. Allergies: Coded Allergies: ciprofloxacin (Intermediate, RASH 03/03/18) Significant Procedures: SERVICE DATE: 03/04/18- EXAM TYPE: MRI - MRI-HEAD W/O DAGMAR IMPRESSION: - There is a small acute infarct extending from the left periventricular white matter into the posterior aspect of the left putamen. There is no evidence of hemorrhagic transformation and there is no significant mass effect. 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 SERVICE DATE: 03/03/18-1631 EXAM TYPE: CAT - CT HEAD ANGIOGRAM; CT NECK ANGIOGRAM IMPRESSION: - As on the earlier head CT, there is advanced chronic microangiopathy and there are lacunar infarcts within the deep sanders nuclei bilaterally making it difficult to exclude any superimposed acute ischemic changes in these areas. If focal neurologic deficit persists, MRI can be obtained to more definitively exclude any acute infarcts in the setting. - There are no acute arterial occlusions intracranially. There is a severe stenosis involving the right P2 [employer] segment. - The right internal carotid artery undertakes a near 90 degree turn at the C2-C3 level with the tight bend resulting in a 60% luminal stenosis of the vessel in this location. Left internal carotid artery is widely patent. Retropharyngeal course of the common carotid arteries and proximal to mid internal carotid arteries. 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 SERVICE DATE: 03/03/18 EXAM TYPE: CAT - CT HEAD WO IV CONTRAST IMPRESSION: There are numerous chronic small vessel ischemic changes within the periventricular white matter and an old chronic lacunar infarct within the left thalamus. Grossly no evidence of acute territorial infarct or hemorrhage. ECHOCARDIOGRAM Left Ventricle Left ventricular cavity size normal. No obvious regional wall motion abnormalities. Left ventricular wall thickness mildly increased. Left ventricular ejection fraction is estimated at > 55 %. Abnormal relaxation filling pattern of the left ventricle (stage 1 diastolic dysfunction). Right Ventricle Normal right ventricular size and function. Right Atrium Normal right atrial size. Left Atrium Normal left atrial size. Mitral Valve Mild mitral annular calcification. Trace mitral regurgitation. Aortic Valve No aortic stenosis. Trileaflet aortic valve. Tricuspid Valve Structurally normal tricuspid valve. Trace tricuspid regurgitation. Unable to estimate the right ventricular systolic pressure. Pulmonic Valve Pulmonic valve not well visualized, grossly normal. Pericardium No pericardial effusion. Great Vessels Normal size aortic root. CONCLUSIONS Left ventricular cavity size normal. No obvious regional wall motion abnormalities. Left ventricular wall thickness mildly increased. Left ventricular ejection fraction is estimated at > 55 %. Abnormal relaxation filling pattern of the left ventricle (stage 1 diastolic dysfunction). Normal right ventricular size and function. Unable to estimate the right ventricular systolic pressure. No pericardial effusion. Disposition Summary Disposition Principal Diagnosis: Acute CVA Additional Diagnosis: As above Discharge Disposition: SNF Discharge Instructions General Discharge Information Code Status: Full Code Patient's Diet: Heart healthy diet Patient's Activity: as tolerated Follow-Up Instructions/Appts: Follow-up with your primary care physician within 1 week of discharge. Follow-up with Dr. Valadez, nuerology, within 1 week of discharge. We have provided you with a referral. Take all medications as directed. You will take Aspirin and Plavix for 2 weeks (last dose on 03/17/18) and then stop taking aspirin and continue with plavix indefinitely. Medications at Discharge Discharge Medications: Continue taking these medications: Furosemide (Furosemide) 20 MG TABLET 1 Tablet ORAL SuMoWeFrSa Qty = 10 Comments: Last Taken:03/06/18 Time:1000 Furosemide (Furosemide) 40 MG TABLET 1 Tablet ORAL TuTh Qty = 4 Comments: Last Taken:03/05/18 Time:1000 Cyanocobalamin (Vitamin B-12) (Cyanocobalamin Injection) 1,000 MCG/ML VIAL 1 Milliliters INTRAMUSC ONCE A MONTH Comments: Last Taken:03/06/18 Time:0900 Ergocalciferol (Vitamin D2) (Vitamin D2) 50,000 UNIT CAPSULE 1 Capsule ORAL ONCE A MONTH Aspirin (Aspirin*) 81 MG TAB.CHEW 1 Tablet ORAL DAILY Instructions: STOP taking on 03/17/18 Comments: Last Taken:03/06/18 Time:0900 Folic Acid (Folic Acid) 0.4 MG TABLET 1 Tablet ORAL DAILY Comments: Last Taken:03/06/18 Time:1000 Potassium Chloride (Potassium Chloride) 20 MEQ TAB.ER.PRT 1 Tablet ORAL DAILY Comments: Last Taken:03/06/18 Time:1000 Duloxetine HCl (Duloxetine HCl) 60 MG CAPSULE.DR 1 Capsule ORAL 5 PM Qty = 30 Comments: Last Taken:03/05/18 Time:1700 Oxycodone HCl (Oxycodone HCl) 10 MG TABLET 1 Tablet ORAL 1800 Qty = 30 Trazodone HCl (Trazodone HCl) 50 MG TABLET 1 Tablet ORAL Every night Qty = 30 Comments: Last Taken:03/05/18 Time:2200 Melatonin (Melatonin) 3 MG TABLET 2 Tablet ORAL Every night Comments: Last Taken:03/05/18 Time:2200 Ranitidine (Ranitidine HCl) 150 MG TABLET 1 Tablet ORAL Every night Qty = 60 Comments: Last Taken:03/05/18 Time:2200 Start taking the following new medications: Clopidogrel Bisulfate (Plavix) 75 MG TABLET 75 Milligram ORAL DAILY Qty = 30 No Refills Comments: Last Taken:03/06/18 Time:1000 Atorvastatin Calcium (Atorvastatin Calcium) 40 MG TABLET 40 Milligram ORAL 5 PM Qty = 30 No Refills Comments: Last Taken:03/05/18 Time:1700 Copies To: Rory GODINEZ,Nicko Grider; Brodie GODINEZ,Dereck Perera; Bassem GODINEZ,Rajat Genao
[2018-03-04 14:30] VITALS: BP 122/94
[2018-03-04 22:32] VITALS: BP 126/68
[2018-03-05 06:47] VITALS: BP 130/94
--- NOTE | 2018-03-05 07:12 | PN- Housestaff ---
Juan GODINEZ,Joshua 03/05/18 0712: Subjective Follow-up For: CVA Tele-Events Since Last Visit: Sinus rhythm HR 80s90s with PVCs Subjective: Patient was seen and examined at bedside. She is resting abdomen. She had no acute events overnight. She currently offers no complaints was referred to being discharged home. She denies any headache, numbness, tingling, weakness, shortness of breath, palpitations, chest pain. Review of Systems Constitutional: Reports: no symptoms. EENTM: Reports: no symptoms. Cardiovascular: Reports: no symptoms. Respiratory: Reports: no symptoms. Gastrointestinal: Reports: no symptoms. Genitourinary: Reports: no symptoms. Musculoskeletal: Reports: no symptoms. Skin: Reports: no symptoms. Objective Last 24 Hrs of Vital Signs/I&O Vital Signs Date Time Temp Pulse Resp B/P B/P Pulse O2 O2 Flow FiO2 Mean Ox Delivery Rate 03/05 0647 98.7 90 20 130/94 92 Room Air 03/04 2232 93.0 96 22 126/68 93 Room Air 03/04 1430 97.8 90 22 122/94 96 Room Air Intake & Output 03/05 0800 03/05 0000 03/04 1600 Intake Total 120 120 500 Output Total Balance 120 120 500 Intake, IV 20 Intake, Oral 120 120 480 Number 1 1 Bowel Movements Patient 181 lb Weight Weight Bed scale Measurement Method Physical Exam General Appearance: Alert, Cooperative, No Acute Distress, oriented to person and place but not time Cardiovascular: Regular Rate, Normal S1, Normal S2 Lungs: Clear to Auscultation, Normal Air Movement Abdomen: Normal Bowel Sounds, Soft, No Tenderness Neurological: Strength at 5/5 X4 Ext, Normal Tone, Sensation Intact, Cranial Nerves 3-12 NL Extremities: numerous ecchymoses on the bilateral UEs from needle sticks Current Medications: Current Medications Sig/Brittany Start time Last Medication Dose Route Stop Time Status Admin Acetaminophen 650 MG Q6P PRN 03/03 2100 AC PO Aspirin 81 MG DAILY 03/04 09 AC 03/04 PO 1220 Atorvastatin Calcium 40 MG 03/04 1700 AC 03/04 PO 1828 Ceftriaxone Sodium 1,000 MG DAILY 03/04 0900 DC 03/04 IV 0859 Clopidogrel Bisulfate 75 MG DAILY 03/04 1036 AC 03/04 PO 1220 Duloxetine HCl 60 MG 03/04 1700 AC 03/04 PO 1828 Enoxaparin Sodium 40 MG DAILY 03/04 0900 AC 03/04 SC 0900 Famotidine 20 MG DAILY 03/04 1545 AC 03/04 PO 1828 Folic Acid 1 MG DAILY 03/04 0900 AC 03/04 PO 1220 Melatonin 6 MG AT BEDTIME 03/05 2100 AC PO Melatonin 3 MG ONCE ONE 03/04 2245 DC 03/04 PO 03/04 224 2246 Melatonin 3 MG AT BEDTIME 03/04 0230 DC 03/04 PO 2123 Potassium Chloride 20 MEQ DAILY 03/05 0900 AC PO Potassium Chloride 40 MEQ ONCE ONE 03/04 1600 DC 03/04 PO 03/04 1601 1827 Potassium Chloride 40 MEQ ONCE ONE 03/04 1215 DC 03/04 PO 03/04 1216 1221 Trazodone HCl 50 MG QPM 03/04 2100 CAN PO Assessment/Plan Assessment: Patient is an 83-year-old female with a PMH significant for HTN, HLD, DJD, OA, diastolic dysfunction stage I with normal EF, urinary incontinence who presented from her long-term facility where she lives with right upper and lower extremity weakness and dysarthria. #CVA Patient feels back to her normal state of health. -As patient was already on aspirin, Plavix was started for dual antiplatelet therapy. We'll continue Plavix and aspirin for 2 weeks and then discontinue aspirin -Continue statin -Follow-up echo -PT has cleared her to go back to her extended care facility and work with physical therapy - anticipated discharge tomorrow -DC tele #Hypokalemia, resolved Diet: Heart healthy DVT prophylaxis: Lovenox CODE STATUS: Full code Problem List: 1. CVA (cerebral vascular accident) Pain Ratin Pain Location: none Pain Goal: Remain pain free Pain Plan: pain pathway Tomorrow's Labs & Rationales: none Candelaira Lamra MD 03/05/18 1307: Attending MD Review Statement Attending Statement Attending MD Statement: examined this patient, discuss w/resident/PA/[employer] CIGAR MAKING SUPERVISOR, agreed w/resident/PA/HAND CIGAR MAKING SUPERVISOR, reviewed EMR data (avail) Attending Assessment/Plan: Doing well today, no new neuro symptoms. Will continue ASA, Plavix, statin, follow neurology recommendations, continue to work with PT, continue current management.
[2018-03-05] MEDS ORDERED: ATORVASTATIN CA40 M1 PO (07:48)
[2018-03-05] MEDS ORDERED: PLAVIX75 M1 PO (07:48)
--- NOTE | 2018-03-05 07:48 | Patient Discharge Instructions ---
Discharge Instructions General Discharge Information You were seen/treated for: Stroke Special Instructions: Follow-up with your primary care physician within 1 week of discharge. Follow-up with Dr. Valadez, nuerology, within 1 week of discharge. We have provided you with a referral. Take all medications as directed. You will take Aspirin and Plavix for 2 weeks (last dose on 03/17/18) and then stop taking aspirin and continue with plavix indefinitely. Call your doctor or return to the ER if you should have difficulty speaking, facial droop, weakness, numbness, tingling, or fall. Acute Coronary Syndrome Inclusion Criteria At DC or during hospital stay patient has or had the following: ACS DIAGNOSIS No Discharge Core Measures Meds if any: Prescribed or Continued at Discharge Meds if any: NOT Prescribed or Continued at Discharge Congestive Heart Failure Inclusion Criteria At DC or during hospital stay patient has or had the following: CHF DIAGNOSIS No Discharge Core Measures Meds if any: Prescribed or Continued at Discharge Meds if any: NOT Prescribed or Continued at Discharge Cerebrovascular accident Inclusion Criteria At DC or during hospital stay patient has or had the following: CVA/TIA Diagnosis Yes Discharge Core Measures Meds if any: Prescribed or Continued at Discharge Antithrombotic Yes Statin (required if LDL =>70) Yes Anticoagulant Yes Meds if any: NOT Prescribed or Continued at Discharge Venous thromboembolism Inclusion Criteria VTE Diagnosis No VTE Type NONE VTE Confirmed by (Test) NONE Discharge Core Measures - Per Current guidelines, there needs to be overlap - treatment for the first 5 days of Warfarin therapy. - If discharged on Warfarin prior to 5 days of - overlap therapy, the patient will need to be - assessed for post discharge needs including - *Post discharge parental anticoagulation - *Warfarin and/or parental anticoagulation education - *Follow up date to check INR post discharge At least 5 days overlap therapy as Inpatient No Meds if any: Prescribed or Continued at Discharge Note: Overlap Therapy is Warfarin and Anticoagulant Meds if any: NOT Prescribed or Continued at Discharge
[2018-03-05 14:13] VITALS: BP 130/74
--- NOTE | 2018-03-05 19:10 | ECHOCARDIOGRAM REPORT ---
RAMIREZ KENT Age: 83 : 1935 Gender: F Exam Date: 03/05/2018 10:42 Exam Location: [facility] Ht (in): 63 Wt (lb): 177 BSA: 1.92 BP: 122 / 80 Ordering Physician: Ellen Brumfield MD Referring Physician: Ellen Brumfield MD Technologist: Faisal Carreon [facility] Room Number: 185-1 Indications: TIA Rhythm: Technical Quality: Fair FINDINGS Left Ventricle Left ventricular cavity size normal. No obvious regional wall motion abnormalities. Left ventricular wall thickness mildly increased. Left ventricular ejection fraction is estimated at > 55 %. Abnormal relaxation filling pattern of the left ventricle (stage 1 diastolic dysfunction). Right Ventricle Normal right ventricular size and function. Right Atrium Normal right atrial size. Left Atrium Normal left atrial size. Mitral Valve Mild mitral annular calcification. Trace mitral regurgitation. Aortic Valve No aortic stenosis. Trileaflet aortic valve. Tricuspid Valve Structurally normal tricuspid valve. Trace tricuspid regurgitation. Unable to estimate the right ventricular systolic pressure. Pulmonic Valve Pulmonic valve not well visualized, grossly normal. Pericardium No pericardial effusion. Great Vessels Normal size aortic root. CONCLUSIONS Left ventricular cavity size normal. No obvious regional wall motion abnormalities. Left ventricular wall thickness mildly increased. Left ventricular ejection fraction is estimated at > 55 %. Abnormal relaxation filling pattern of the left ventricle (stage 1 diastolic dysfunction). Normal right ventricular size and function. Unable to estimate the right ventricular systolic pressure. No pericardial effusion. Louie Del Cid M.D. (Electronically Signed) Final Date: 05 March 2018 19:09 MEASUREMENTS (Male / Female) Normal Values 2D ECHO LV Diastolic Diameter PLAX 3.7 cm 4.2 - 5.9 / 3.9 - 5.3 cm LV Systolic Diameter PLAX 2.1 cm 2.1 - 4.0 cm LV Fractional Shortening PLAX 43.2 % 25 - 46 % LV Ejection Fraction 2D Teich 75.2 % IVS Diastolic Thickness 1.2 cm LVPW Diastolic Thickness 1.2 cm LV Relative Wall Thickness 0.6 RV Internal Dim ED PLAX 3.0 cm 1.9 - 3.8 cm LA Volume 24.0 cm 18 - 58 / 22 - 52 cm Ascending Aorta Diameter 3.3 cm DOPPLER AV Peak Velocity 178.0 cm/s AV Peak Gradient 12.7 mmHg AV Mean Velocity 106.0 cm/s AV Mean Gradient 6.0 mmHg AV Velocity Time Integral 32.0 cm LVOT Peak Velocity 143.0 cm/s LVOT Peak Gradient 8.2 mmHg LVOT Mean Velocity 103.0 cm/s LVOT Mean Gradient 5.0 mmHg LVOT Velocity Time Integral 32.2 cm MV Peak Velocity 116.0 cm/s MV Peak Gradient 5.4 mmHg MV Mean Velocity 68.1 cm/s MV Mean Gradient 2.0 mmHg Mitral E Point Velocity 73.5 cm/s Mitral A Point Velocity 107.0 cm/s Mitral E to A Ratio 0.7 MV PHT Velocity 89.6 cm/s MV Deceleration [place] 225.0 cm/s MV Pressure Half Time 119.5 ms MV Area PHT 1.8 cm MV Deceleration Time 401.0 ms TR Peak Velocity 228.0 cm/s TR Peak Gradient 20.8 mmHg Right Atrial Pressure 5.0 mmHg Pulmonary Artery Systolic Pressu 25.8 mmHg Right Ventricular Systolic Press 25.8 mmHg PV Peak Velocity 102.0 cm/s PV Peak Gradient 4.2 mmHg PV Mean Velocity 60.9 cm/s PV Mean Gradient 2.0 mmHg PV Velocity Time Integral 16.3 cm
[2018-03-05 22:23] VITALS: BP 138/84
--- NOTE | 2018-03-06 07:06 | PN- Housestaff ---
Subjective Follow-up For: CVA Tele-Events Since Last Visit: off of tele Subjective: Patient was seen and examined at bedside. She is resting comfortably. She had no acute events overnight. She had some diarrhea and mild nausea yesterday, this was likely secondary to potassium supplementation her nausea and diarrhea have now resolved. She denies any weakness, numbness, headaches, blurry vision, and chest pain, shortness of breath, palpitations. Review of Systems Constitutional: Denies: chills, fever. EENTM: Reports: no symptoms. Cardiovascular: Reports: no symptoms. Respiratory: Reports: no symptoms. Gastrointestinal: Reports: no symptoms. Genitourinary: Reports: no symptoms. Musculoskeletal: Reports: no symptoms. Skin: Reports: no symptoms. Objective Last 24 Hrs of Vital Signs/I&O Vital Signs Date Time Temp Pulse Resp B/P B/P Pulse O2 O2 Flow FiO2 Mean Ox Delivery Rate 03/05 2223 99.1 100 22 138/84 92 03/05 1600 Room Air 03/05 1413 98.2 95 20 130/74 94 Room Air Intake & Output 03/06 0800 03/06 0000 03/05 1600 Intake Total 360 400 Output Total Balance 360 400 Intake, Oral 360 400 Number 4 Bowel Movements Patient 178 lb Weight Physical Exam General Appearance: Alert, Cooperative, No Acute Distress Skin Temp/Moisture Exam: Warm/Dry Cardiovascular: Regular Rate, Normal S1, Normal S2 Lungs: Clear to Auscultation, Normal Air Movement Abdomen: Normal Bowel Sounds, Soft, No Tenderness Neurological: Normal Speech, Normal Tone, Sensation Intact, Cranial Nerves 3-12 NL Extremities: No Clubbing, No Cyanosis, No Edema Current Medications: Current Medications Sig/Brittany Start time Last Medication Dose Route Stop Time Status Admin Acetaminophen 650 MG Q6P PRN 03/03 2100 AC PO Aspirin 81 MG DAILY 03/04 0900 AC 03/05 PO 0901 Atorvastatin Calcium 40 MG 03/04 1700 AC 03/05 PO 1600 Clopidogrel Bisulfate 75 MG DAILY 03/04 1036 AC 03/05 PO 0901 Duloxetine HCl 60 MG 03/04 1700 AC 03/05 PO 1600 Enoxaparin Sodium 40 MG DAILY 03/04 0900 AC 03/05 SC 0901 Famotidine 20 MG DAILY 03/04 1545 AC 03/05 PO 0901 Folic Acid 1 MG DAILY 04/25 0900 AC 03/05 PO 0901 Furosemide 20 MG DAILY 03/05 0900 AC 03/05 PO 0900 Melatonin 6 MG AT BEDTIME 03/05 2100 AC 03/05 PO 2054 Patient Medication 1 ED ONE ONE 03/05 1530 DC Teaching ED 03/05 1531 Potassium Chloride 20 MEQ DAILY 03/05 0900 AC 03/05 PO 0902 Ramelteon 8 MG ONCE ONE 03/05 2215 DC PO 03/05 2216 Orders ECHO Findings: Left Ventricle Left ventricular cavity size normal. No obvious regional wall motion abnormalities. Left ventricular wall thickness mildly increased. Left ventricular ejection fraction is estimated at > 55 %. Abnormal relaxation filling pattern of the left ventricle (stage 1 diastolic dysfunction). Right Ventricle Normal right ventricular size and function. Right Atrium Normal right atrial size. Left Atrium Normal left atrial size. Mitral Valve Mild mitral annular calcification. Trace mitral regurgitation. Aortic Valve No aortic stenosis. Trileaflet aortic valve. Tricuspid Valve Structurally normal tricuspid valve. Trace tricuspid regurgitation. Unable to estimate the right ventricular systolic pressure. Pulmonic Valve Pulmonic valve not well visualized, grossly normal. Pericardium No pericardial effusion. Great Vessels Normal size aortic root. CONCLUSIONS Left ventricular cavity size normal. No obvious regional wall motion abnormalities. Left ventricular wall thickness mildly increased. Left ventricular ejection fraction is estimated at > 55 %. Abnormal relaxation filling pattern of the left ventricle (stage 1 diastolic dysfunction). Normal right ventricular size and function. Unable to estimate the right ventricular systolic pressure. No pericardial effusion. Assessment/Plan Assessment: Patient is an 83-year-old female with a PMH significant for HTN, HLD, DJD, OA, diastolic dysfunction stage I with normal EF, urinary incontinence who presented from her [facility] facility where she lives with right upper and lower extremity weakness and dysarthria. #CVA Patient continues to feel well. No focal neurological deficits noted on exam. -Continue dual antiplatelet therapy for a total of 2 weeks, and will discontinue aspirin and continue Plavix -Continue statin -Echo results are unremarkable -PT has cleared her to go back to her extended care facility and work with physical therapy - anticipated discharge today #chronic medical problems -continue home medication regimen Diet: Heart healthy DVT prophylaxis: Lovenox CODE STATUS: Full code Problem List: 1. CVA (cerebral vascular accident) Pain Ratin Pain Location: none Pain Goal: Remain pain free Pain Plan: pain pathway Tomorrow's Labs & Rationales: none Consulting Request: Consulting Specialty: Neurology
[2018-03-06 07:23] VITALS: BP 122/66
[2018-03-06 10:12] VITALS: BP 122/66
== END 2018-03-06 11:45 | DRG 65 ==
LOC: ERH 14:45 → ERHI 18:47 → 1NO 18:47 → ENRESERV 21:30 → ENTRNSPT 22:02 → EDTRNSPTSTS 22:11 → EDTRNSPT 22:11 → 1NO 22:19 → CMPTRNSPT 22:25 → 1NO 03-04 07:28 → ENPENDDIS 03-06 09:04 → 1NO 03-06 11:45
PROVIDERS: Emergency Medicine; Student in an Organized Health Care Education/Training Program
DX: I63.59 Cerebral infarction due to unspecified occlusion or stenosis of other cerebral artery (principal); N39.0 Urinary tract infection, site not specified; I66.21 Occlusion and stenosis of right posterior cerebral artery; I11.0 Hypertensive heart disease with heart failure; I50.32 Chronic diastolic (congestive) heart failure; I69.322 Dysarthria following cerebral infarction; R29.703 NIHSS score 3; E87.6 Hypokalemia; E66.9 Obesity, unspecified; Z68.31 Body mass index [BMI] 31.0-31.9, adult; R26.89 Other abnormalities of gait and mobility; G83.21 Monoplegia of upper limb affecting right dominant side; I71.2 Thoracic aortic aneurysm, without rupture; E78.5 Hyperlipidemia, unspecified; M19.90 Unspecified osteoarthritis, unspecified site
CPT/HCPCS: 1NSP; 70551; 36592; 81001; 82436; 87086; 93005; 93010; 93306; 97110-GO; 97161-GP; 97530-GO; J0696; J1650; J3490